=== PATIENT | male | born 1950 | race Caucasian/White ===

== ENCOUNTER 2017-01-01 12:21 | Emergency (ER) | payer OTHER ==
[2017-01-01 12:26] VITALS: BP 145/77; PULSE 99; TEMP 98.1; BMI 25.7
[2017-01-01] MEDS ORDERED: ALBUTEROL SO4 2.5/IPRATROPIUM 0.5 INH SOL 3 ML VIAL.NEB. NEB ONE ×5 (12:53→13:39)
[2017-01-01] MEDS ORDERED: predniSONE 20 MG TABLET (UD) PO ONE (12:53)
[2017-01-01] MEDS ORDERED: predniSONE 20 MG TABLET (UD) ONE (12:55)
--- NOTE | 2017-01-01 13:03 | PDOC ---
History of Present Illness - General Chief Complaint: Respiratory Stated Complaint: Bad cough, pain on ribs when cough Time Seen by Provider: 01/01/17 12:40 History Source: Patient Exam Limitations: No Limitations - History of Present Illness Initial Comments: 01/01/17 12:54 66 yr male history of depression, presents with 4-5 days of cough on Zpack day 4 with no improvement, pt states told he has the flu as well. . Pt denies fever states his is admitted to the hospital with flu. Pt denies chest pain denies fever or chills. Pt denies smoking history. 01/01/17 17:21 Timing/Duration: reports: constant Severity: reports: mild Possible Cause: Yes: no prior episodes Associated Symptoms: reports: cough. denies: nasal drainage, shortness of breath Past History - Past Medical History Allergies/Adverse Reactions: Allergies Allergy/AdvReac Type Severity Reaction Status Date / Time No Known Allergies Allergy Verified 01/01/17 12:26 Home Medications: Ambulatory Orders Albuterol Sulfate Inhaler - [Ventolin HFA Inhaler -] 2 inh PO Q4H #1 inh Ibuprofen 600 mg PO TID PRN #30 tablet 01/01/17 Prednisone [Deltasone -] 40 mg PO DAILY #14 tablet 01/01/17 HTN: Yes Hypercholesterolemia: Yes Psychiatric Problems: Yes (anxiety) Suicide Attempt (Hx): No - Surgical History Abdominal Surgery: Yes (HERNIA) - Psycho/Social/Smoking Cessation Hx Anxiety: No Suicidal Ideation: No Smoking Status: Yes Smoking History: Never smoked Number of Cigarettes Smoked Daily: 0 Information on smoking cessation initiated: No Hx Alcohol Use: No Drug/Substance Use Hx: No Substance Use Type: None Respiratory Specific PMHX - Complaint Specific PMHX Angina: No Bronchitis: Yes Pneumonia: No Pulmonary Embolus: No TB (Tuberculosis): No Review of Systems - Review of Systems Able to Perform ROS?: Yes Is the patient limited [place] proficient: No Constitutional: No: Symptoms Reported HEENTM: Yes: Nose Congestion Respiratory: Yes: Cough Cardiac (ROS): No: Chest Pain *Physical Exam - Vital Signs Last Vital Signs Temp Pulse Resp BP Pulse Ox 98.1 F 99 H 18 145/77 97 01/01/17 12:23 01/01/17 12:23 01/01/17 12:23 01/01/17 12:23 01/01/17 12:23 - Physical Exam General Appearance: Yes: Nourished, Appropriately Dressed HEENT: positive: EOMI, [place], Normal ENT Inspection, TMs Normal, Pharynx Normal Neck: positive: Supple. negative: Tender Respiratory/Chest: positive: Rhonchi, Wheezing Cardiovascular: positive: Regular Rhythm, Regular Rate Gastrointestinal/Abdominal: positive: Normal Bowel Sounds, Soft Musculoskeletal: positive: Normal Inspection Extremity: positive: Normal Capillary Refill, Normal Inspection Integumentary: positive: Normal Color, Dry, Warm Neurologic: positive: tower attendant II-XII NML intact, Fully Oriented, Alert, Normal Mood/ Affect Heart Score/ECG Review - ECG Impressions Normal ECG: Yes Comment:: 01/01/17 13:03 EKG done in triage was NSR no ectopy neg STEMI signed by in ER ED Treatment Course - RADIOLOGY Radiology Studies Ordered: Category Date Time Status CHEST PA & LAT [RAD] Stat Radiology 01/01/17 12:53 Ordered Medical Decision Making - Medical Decision Making 01/01/17 13:04 c/o cough for 4-5 days on Zpa day 4 pt denies chest pain , pos SOB worse at night lungs with coarse BS< wheezing, rhonchi will get CXR , check for flu duoneb, prednisone 01/01/17 13:27 01/01/17 13:34 pt improved after nebulizer CXR negative flu is positive, pt dx with lfu one week ago will give prednisone, inhaler, continue the zpack pt given dc inst via faroese translation. all questions asked and answered 01/01/17 17:22 *DC/Admit/Observation/Transfer Diagnosis at time of Disposition: Bronchitis - Discharge Dispostion Disposition: HOME Condition at time of disposition: Improved - Prescriptions Prescriptions: Prednisone [Deltasone -] 40 mg PO DAILY #14 tablet Ibuprofen 600 mg PO TID PRN #30 tablet PRN Reason: Pain Albuterol Sulfate Inhaler - [Ventolin HFA Inhaler -] 2 inh PO Q4H #1 inh - Referrals Referrals: Gi Hickey NP [Primary Care Provider] - - Patient Instructions Additional Instructions: take the prescribed prednisone as directed, next dose TOMORROW morning use the albuterol inhaler as directed take motrin for pain as needed drink pleanty of water to stay hydrated continue the Zpack you have started follow with your doctor in 2-3 days Return to ER if any worsening symptoms Print Language: CITIZEN OF [place]
--- NOTE | 2017-01-04 17:18 | EKG ---
Test Reason : Blood Pressure : / mmHG Vent. Rate : 093 BPM Atrial Rate : 093 BPM P-R Int : 134 ms QRS Dur : 094 ms QT Int : 358 ms P-R-T Axes : 056 043 042 degrees QTc Int : 445 ms NORMAL SINUS RHYTHM NORMAL ECG WHEN COMPARED WITH ECG OF 30-SEP-2013 16:35, NO SIGNIFICANT CHANGE WAS FOUND Confirmed by KYLE ACEVEDO MD ([id number]) on 01/04/2017 5:18:45 PM Referred By: Confirmed By:KYLE ACEVEDO MD
== END 2017-01-01 14:01 | disposition home or self-care (01) ==
LOC: JERFT 12:21
PROC: 3E0F7GC Introduction of Other Therapeutic Substance into Respiratory Tract, Via Natural or Artificial Opening (ICD-10-PCS; principal; 2017-01-01)
PROC: 3E0F7GC Introduction of Other Therapeutic Substance into Respiratory Tract, Via Natural or Artificial Opening (ICD-10-PCS; 2017-01-01)
DX: J09.X2 Influenza due to identified novel influenza A virus with other respiratory manifestations (principal); I10 Essential (primary) hypertension; E78.00 Pure hypercholesterolemia, unspecified; F41.9 Anxiety disorder, unspecified
CPT/HCPCS: 71020-TC; 87804; 93005; 93010; 94640; 99281-25

== ENCOUNTER 2018-01-22 10:03 | Emergency (ER) | payer OTHER ==
[2018-01-22 10:07] VITALS: TEMP 98.3; BMI 29.2
[2018-01-22] MEDS ORDERED: LIDOCAINE VISCOUS 2% ORAL/TOP 20 ML UNIT-DOSE CUP MM ONE (11:08)
--- NOTE | 2018-01-22 11:08 | PDOC ---
History of Present Illness - General History Source: Patient Exam Limitations: No Limitations - History of Present Illness Initial Comments: 01/22/18 11:11 The patient is a 67-year-old male, with a significant past medical history of GERD, HTN, hypercholesterolemia, and anxiety/depression, who presents to the ED with diffuse abdominal pain that began on 01/18/18. The patient states that he normally eats healthy foods but on Tuesday, after eating dinner, he decided to eat chocolate, donuts, and chicken soup that he noted was greasy. Since then the patient developed this intermittent, mid-abdominal pain that he describes as a burning sensation. He denies any radiation or exacerbating factors. The patient reports taking omeprazole with minimal relief of his symptoms. He called his pharmacy yesterday to see what he could take for his symptoms; they recommended mylanta. The Mylanta helped to alleviate his symptoms a little, but the patient reported to the ED for further evaluation since his symptoms have not resolved completely. The patient has been eating and drinking normally. He reports having diarrhea 2 days ago that has now resolved. He denies any urinary changes. He had a colonoscopy (2-3 years ago) and an endoscopy in the past that appeared to be normal. The patient denies any fever, chills, nausea, vomiting, or constipation. Allergies: NKA Surgical History: hernia repair, endoscopy, colonoscopy. PCP: Dr. Smith <Ximena Rogel - Last Filed: 01/22/18 11:12> - General History Source: Patient Exam Limitations: No Limitations <Olive Ambriz - Last Filed: 01/22/18 12:53> - General Chief Complaint: Pain Stated Complaint: ABD PAIN Past History <Ximena Rogel - Last Filed: 01/22/18 11:12> - Past Medical History COPD: No HTN: Yes Hypercholesterolemia: Yes Psychiatric Problems: Yes (anxiety) - Surgical History Abdominal Surgery: Yes (HERNIA) - Suicide/Smoking/Psychosocial Hx Smoking Status: Yes Smoking History: Never smoked Number of Cigarettes Smoked Daily: 0 Information on smoking cessation initiated: No Hx Alcohol Use: No Drug/Substance Use Hx: No Substance Use Type: None <Olive Ambriz - Last Filed: 01/22/18 12:53> - Past Medical History Allergies/Adverse Reactions: Allergies Allergy/AdvReac Type Severity Reaction Status Date / Time No Known Allergies Allergy Verified 01/22/18 10:07 Home Medications: Ambulatory Orders NK [No Known Home Medication] 01/22/18 Review of Systems - Review of Systems Able to Perform ROS?: Yes Comments:: 01/22/18 11:12 GENERAL/CONSTITUTIONAL: No fever or chills. No weakness. HEAD, EYES, EARS, NOSE AND THROAT: No change in vision. No ear pain or discharge. No sore throat. CARDIOVASCULAR: No chest pain or shortness of breath. RESPIRATORY: No cough, wheezing, or hemoptysis. GASTROINTESTINAL: (+)diarrhea, mid-abdominal pain. No nausea, vomiting, diarrhea or constipation. GENITOURINARY: No dysuria, frequency, or change in urination. MUSCULOSKELETAL: No joint or muscle swelling or pain. No neck or back pain. SKIN: No rash NEUROLOGIC: No headache, vertigo, loss of consciousness, or change in strength/ sensation. ENDOCRINE: No increased thirst. No abnormal weight change. HEMATOLOGIC/LYMPHATIC: No anemia, easy bleeding, or history of blood clots. ALLERGIC/IMMUNOLOGIC: No hives or skin allergy. <Ximena Rogel - Last Filed: 01/22/18 11:12> *Physical Exam - Vital Signs Last Vital Signs Temp Pulse Resp BP Pulse Ox 98.3 F 101 H 18 146/95 98 01/22/18 10:04 01/22/18 10:04 01/22/18 10:04 01/22/18 10:04 01/22/18 10:04 - Physical Exam Comments: 01/22/18 11:13 GENERAL: Awake, alert, and fully oriented, in no acute distress HEAD: No signs of trauma EYES: PERRLA, EOMI, sclera anicteric, conjunctiva clear ENT: Auricles normal inspection, nares patent, oropharynx clear without exudates. Moist mucosa. NECK: Normal ROM, supple, no lymphadenopathy, JVD, or masses LUNGS: Breath sounds equal, clear to auscultation bilaterally. No wheezes, and no crackles HEART: Regular rate and rhythm, normal S1 and S2, no murmurs, rubs or gallops ABDOMEN: Soft, nontender, normoactive bowel sounds. No guarding, no rebound. No masses EXTREMITIES: Normal range of motion, no edema. No clubbing or cyanosis. No cords, erythema, or tenderness NEUROLOGICAL: Alert and oriented x 3. Moves all extremities. Face is symmetric. SKIN: Warm, Dry, normal turgor, no rashes or lesions noted <Ximena Rogel - Last Filed: 01/22/18 11:12> - Vital Signs Last Vital Signs Temp Pulse Resp BP Pulse Ox 98.3 F 101 H 18 146/95 98 01/22/18 10:04 01/22/18 10:04 01/22/18 10:04 01/22/18 10:04 01/22/18 10:04 <Olive Ambriz - Last Filed: 01/22/18 12:53> Heart Score/ECG Review #1 General ECG Interpretation: Sinus Rhythm, Normal Rate (71), Normal Intervals, No acute ischemic changes <Olive Ambriz - Last Filed: 01/22/18 12:53> ED Treatment Course - LABORATORY CBC & Chemistry Diagram: 01/22/18 11:56 01/22/18 11:56 <Olive Ambriz - Last Filed: 01/22/18 12:53> Medical Decision Making - Medical Decision Making 01/22/18 10:58 67 yo male with generalized abd pain, x 5 days differential gastritis, ulcer, gerd, pancreatitis. plan labs lipase antacid. reassess. 01/22/18 12:47 pt labs unremarkable, has followup with GI scheduled for one month with dr. macias. feels improved. ekg normal. dc home. <Olive Ambriz - Last Filed: 01/22/18 12:53> *DC/Admit/Observation/Transfer - Attestations Scribe Attestion: 01/22/18 11:14 Documentation prepared by Ximena Rogel, acting as medical/surgery registered nurse for Olive Ambriz MD. <Ximena Rogel - Last Filed: 01/22/18 11:12> - Discharge Dispostion Admit: No <Olive Ambriz - Last Filed: 01/22/18 12:53> Diagnosis at time of Disposition: GERD (gastroesophageal reflux disease) - Discharge Dispostion Disposition: HOME Condition at time of disposition: Improved - Referrals Referrals: Stacy Tejeda MD [Primary Care Provider] - - Patient Instructions Printed Discharge Instructions: Gastroesophageal Reflux Disease (Alternative Therapy) Additional Instructions: you should take pepcid daily to help with reflux. follow up with dr. macias as scheduled. return for any vomiting, worsening pain, fever or any concerns. Print Language: KOSOV[place] - Post Discharge Activity
[2018-01-22] MEDS ORDERED: RANITIDINE HCL 150 MG/10 ML UNIT-DOSE PO ONE (11:09)
[2018-01-22] MEDS ORDERED: MAG HYDROX/AL HYDROX/SIMETH 30 ML UNIT-DOSE CUP PO ONE (11:09)
[2018-01-22] MEDS ORDERED: RANITIDINE HCL 150 MG TABLET (FP) ONE (11:13)
[2018-01-22] MEDS ORDERED: LIDOCAINE VISCOUS 2% ORAL/TOP 20 ML UNIT-DOSE CUP ONE (11:13)
[2018-01-22] MEDS ORDERED: MAG HYDROX/AL HYDROX/SIMETH 30 ML UNIT-DOSE CUP ONE (11:13)
[2018-01-22 12:11] LABS: BASO % 0.8 % (0-2.0); EOS % 1.1 % (0-4.5); HEMATOCRIT 42.8 % (35.4-49); HEMOGLOBIN 14.4 GM/dL (11.7-16.9); LYMPH % 30.6 % (8-40); MCH 29.9 pg (25.7-33.7); MCHC 33.6 g/dl (32.0-35.9); MEAN PLT VOLUME 7.3 fl (7.5-11.1); MONO % 7.4 % (3.8-10.2); NEUT % 60.1 % (42.8-82.8); PLATELET COUNT 279 K/MM3 (134-434); RBC 4.81 M/mm3 (4.00-5.60); RDW 13.9 % (11.9-15.9)
[2018-01-22 12:37] LABS: ALBUMIN 3.6 g/dl (3.4-5.0); ANION GAP 5 (8-16); BLOOD UREA NITROGEN 12 mg/dL (7-18); CALCIUM 8.6 mg/dL (8.5-10.1); CHLORIDE 107 mmol/L (98-107); CO2 29 mmol/L (21-32); CREATININE 0.9 mg/dL (0.7-1.3); GLUCOSE,RANDOM 87 mg/dL (74-106); LIPASE 132 U/L (73-393); SGPT/ALT 31 U/L (12-78); SODIUM 141 mmol/L (136-145)
[2018-01-22 12:38] LABS: ALK PHOS 84 U/L (45-117); BILIRUBIN,TOTAL 0.5 mg/dL (0.2-1.0); TOT PROT 7.1 g/dl (6.4-8.2)
[2018-01-22 12:41] LABS: POTASSIUM 4.8 mmol/L (3.5-5.1); SGOT/AST 36 U/L (15-37)
[2018-01-22 13:06] VITALS: BP 127/74; PULSE 81
--- NOTE | 2018-01-22 14:47 | EKG ---
Test Reason : Blood Pressure : / mmHG Vent. Rate : 071 BPM Atrial Rate : 071 BPM P-R Int : 166 ms QRS Dur : 098 ms QT Int : 380 ms P-R-T Axes : 048 032 034 degrees QTc Int : 412 ms NORMAL SINUS RHYTHM NORMAL ECG WHEN COMPARED WITH ECG OF 01-JAN-2017 12:27, NO SIGNIFICANT CHANGE WAS FOUND Confirmed by ANDREE BISHOP MD ([id number]) on 01/22/2018 2:47:01 PM Referred By: Confirmed By:ANDREE BISHOP MD
== END 2018-01-22 13:06 | disposition home or self-care (01) ==
LOC: JER 10:03
DX: K21.9 Gastro-esophageal reflux disease without esophagitis (principal); I10 Essential (primary) hypertension; E78.00 Pure hypercholesterolemia, unspecified; F41.9 Anxiety disorder, unspecified; F32.9 Major depressive disorder, single episode, unspecified
CPT/HCPCS: 36415; 80053; 83690; 85025; 93005; 93010; 99283-25

== ENCOUNTER 2018-11-21 09:53 | Emergency (ER) | payer OTHER ==
[2018-11-21] MEDS ORDERED: KETOROLAC TROMETHAMINE 30 MG/1 ML VIAL IVPUSH ONE (10:32)
[2018-11-21] MEDS ORDERED: KETOROLAC TROMETHAMINE 30 MG/1 ML VIAL ONE (10:51)
--- NOTE | 2018-11-21 11:03 | PDOC ---
History of Present Illness - General Chief Complaint: Nausea Stated Complaint: STOMACH PAIN Time Seen by Provider: 11/21/18 10:25 History Source: Patient Exam Limitations: No Limitations - History of Present Illness Travel History: No Initial Comments: 11/21/18 10:37 68-year-old male presents to ED with complaints of generalized abdominal pain greater in the belly button region which she describes as a burning sensation for the past 3 days associated with intermittent brown watery diarrhea. Patient denies history of colitis and states receives colonoscopies as scheduled. Patient denies nausea as initially stated in triage. Patient denies fever, chills recent constipation states has been taking Pepto-Bismol and Mylanta which seemed to alleviate the diarrhea. Patient has no other complaints at this time. Patient was seen here for the same last year. Timing/Duration: reports: getting worse, intermittent Quality: reports: moderate, burning Abdominal Pain Onset Location: reports: periumbilical, generalized abdomen Activities at Onset: reports: none Aggravating Factors: improves with: None Alleviating Factors: improves with: None Past History - Travel Traveled outside of the country in the last 30 days: No Close contact w/someone who was outside of country & ill: No - Past Medical History Allergies/Adverse Reactions: Allergies Allergy/AdvReac Type Severity Reaction Status Date / Time No Known Allergies Allergy Verified 01/22/18 10:07 Home Medications: Ambulatory Orders NK [No Known Home Medication] 01/22/18 COPD: No HTN: Yes Hypercholesterolemia: Yes Psychiatric Problems: Yes (anxiety) - Surgical History Abdominal Surgery: Yes (HERNIA) - Suicide/Smoking/Psychosocial Hx Smoking Status: Yes Smoking History: Never smoked Number of Cigarettes Smoked Daily: 0 Hx Alcohol Use: No Drug/Substance Use Hx: No Substance Use Type: None Patient Lives Alone: No Lives with/in: spouse/SO Abd/GI Specific PMHX - Complaint Specific PMHX Colitis: No Diverticulitis: No Review of Systems - Review of Systems Able to Perform ROS?: Yes Constitutional: No: Symptoms Reported HEENTM: No: Symptoms Reported Respiratory: No: Symptoms reported Cardiac (ROS): No: Symptoms Reported ABD/GI: Yes: Diarrhea, Abdominal cramping : No: Symptoms Reported Musculoskeletal: No: Symptoms Reported Integumentary: No: Symptoms Reported Neurological: No: Symptoms reported *Physical Exam - Physical Exam General Appearance: Yes: Nourished, Appropriately Dressed. No: Apparent Distress HEENT: negative: Pale Conjunctivae Neck: positive: Supple Respiratory/Chest: positive: Lungs Clear, Normal Breath Sounds. negative: Respiratory Distress, Accessory Muscle Use Cardiovascular: positive: Regular Rhythm, Regular Rate. negative: Edema Gastrointestinal/Abdominal: positive: Normal Bowel Sounds, Soft, Tenderness ( generalize greater in the periumbilical region). negative: Distended, Guarding , Rebound Musculoskeletal: negative: CVA Tenderness Extremity: negative: Pedal Edema Integumentary: positive: Normal Color, Warm, Moist Neurologic: positive: Normal Mood/Affect (anxious), Motor Strength 5/5 ( ambulatory) ED Treatment Course - LABORATORY CBC & Chemistry Diagram: 11/21/18 11:00 11/21/18 11:00 - RADIOLOGY Radiology Studies Ordered: Category Date Time Status ABDOMEN & PELVIS CT W/O CONTR [CT] Stat CT Scan 11/21/18 10:32 Ordered Medical Decision Making - Medical Decision Making 11/21/18 10:41 Chief complaint: generalized abd pain with diarrhea 3 days ago. No other complaints Exam: tenderness to periumbilical region, BS+ x 4 Plan: Labs, urine and abd/pelvis CT 11/21/18 13:39 Laboratory Tests 11/21/18 11/21/18 11/21/18 11:00 11:00 11:00 WBC 7.2 Hgb 15.2 Hct 43.8 Neutrophils % 63.0 Sodium 138 Potassium 4.3 Chloride 104 Carbon Dioxide 30 Anion Gap 4 L BUN 16 Creatinine 1.0 Creat Clearance w eGFR > 60 Random Glucose 90 Calcium 8.6 Magnesium 3.0 H Total Bilirubin 0.6 AST 34 ALT 34 Alkaline Phosphatase 109 Total Protein 7.8 Albumin 4.1 Lipase 178 Urine Ketones Negative Ur Leukocyte Esterase Negative Patient states feeling better after receiving the medication. Patient with colonic diverticulosis without CT evidence of diverticulitis. The prostate is enlarged normal appendix with small hiatal hernia and umbilical hernia with fat. Also noted bilateral inguinal hernias with fat. Patient will be discharged home with recommendations to follow up with surgeon. *DC/Admit/Observation/Transfer Diagnosis at time of Disposition: Hernia - Discharge Dispostion Disposition: HOME Condition at time of disposition: Good - Referrals Referrals: Stacy Tejeda MD [Primary Care Provider] - Los Parker MD [Staff Physician] - - Patient Instructions Printed Discharge Instructions: DI for Hiatal Hernia Additional Instructions: Please follow-up with recommended surgeon. Also avoid lifting heavy items and wear abdominal binder as discussed. You may take Tylenol or Motrin for discomfort. - Post Discharge Activity
[2018-11-21 11:19] LABS: EOS % 1.2 % (0-4.5); HEMATOCRIT 43.8 % (35.4-49); HEMOGLOBIN 15.2 GM/dL (11.7-16.9); LYMPH % 27.3 % (8-40); MCH 30.7 pg (25.7-33.7); MCHC 34.6 g/dl (32.0-35.9); MEAN CELL VOLUME 88.8 fl (80-96); MEAN PLT VOLUME 7.5 fl (7.5-11.1); MONO % 7.5 % (3.8-10.2); PLATELET COUNT 262 K/MM3 (134-434); RBC 4.94 M/mm3 (4.00-5.60); RDW 14.2 % (11.9-15.9); WHITE BLOOD COUNT 7.2 K/mm3 (4.0-10.0)
[2018-11-21 11:23] VITALS: BP 145/93; PULSE 96; TEMP 98; BMI 26.9
[2018-11-21 11:46] LABS: URINE APPEARANCE CLEAR; URINE BILIRUBIN NEGATIVE (<2.0 mg/dL); URINE COLOR YELLOW; URINE GLUCOSE (UA) NEGATIVE (NEGATIVE); URINE KETONE NEGATIVE (NEGATIVE); URINE LEUK ESTERASE NEGATIVE (NEGATIVE); URINE NITRITE NEGATIVE (NEGATIVE); URINE PROTEIN NEGATIVE (NEGATIVE); URINE UROBILINOGEN NEGATIVE mg/dL (0.2-1.0)
[2018-11-21 11:50] LABS: ALBUMIN 4.1 g/dl (3.4-5.0); ALK PHOS 109 U/L (45-117); ANION GAP 4 MMOL/L (8-16); BILIRUBIN,TOTAL 0.6 mg/dL (0.2-1); BLOOD UREA NITROGEN 16 mg/dL (7-18); CALCIUM 8.6 mg/dL (8.5-10.1); CHLORIDE 104 mmol/L (98-107); CO2 30 mmol/L (21-32); GLUCOSE,RANDOM 90 mg/dL (74-106); LIPASE 178 U/L (73-393); POTASSIUM 4.3 mmol/L (3.5-5.1); SGOT/AST 34 U/L (15-37); SGPT/ALT 34 U/L (13-61); SODIUM 138 mmol/L (136-145); TOT PROT 7.8 g/dl (6.4-8.2)
[2018-11-21] MEDS ORDERED: LIDOCAINE VISCOUS 2% ORAL/TOP 20 ML UNIT-DOSE CUP MM ONE (12:25)
[2018-11-21] MEDS ORDERED: MAG HYDROX/AL HYDROX/SIMETH 30 ML UNIT-DOSE CUP PO ONE (12:26)
[2018-11-21] MEDS ORDERED: HYOSCYAMINE SULFATE 0.125 MG *ODT PO ONE (12:26)
[2018-11-21] MEDS ORDERED: PANTOPRAZOLE SODIUM 40 MG in SODIUM CHLORIDE 100 ML IVPB ONE (12:27)
[2018-11-21] MEDS ORDERED: LIDOCAINE VISCOUS 2% ORAL/TOP 20 ML UNIT-DOSE CUP ONE (12:58)
[2018-11-21] MEDS ORDERED: MAG HYDROX/AL HYDROX/SIMETH 30 ML UNIT-DOSE CUP ONE (12:58)
[2018-11-21] MEDS ORDERED: PANTOPRAZOLE SODIUM 40 MG/100 ML BAG IVPB ONE (12:58)
[2018-11-21] MEDS ORDERED: IBUPROFEN 600 MG TABLET (FP) PO ONE (13:42)
== END 2018-11-21 13:59 | disposition home or self-care (01) ==
LOC: JER 09:53
PROC: 3E033GC Introduction of Other Therapeutic Substance into Peripheral Vein, Percutaneous Approach (ICD-10-PCS; principal; 2018-11-21)
DX: K40.20 Bilateral inguinal hernia, without obstruction or gangrene, not specified as recurrent (principal); K42.9 Umbilical hernia without obstruction or gangrene; K44.9 Diaphragmatic hernia without obstruction or gangrene; K57.30 Diverticulosis of large intestine without perforation or abscess without bleeding; N40.0 Benign prostatic hyperplasia without lower urinary tract symptoms
CPT/HCPCS: 36415; 74176-TC; 80053; 81003; 83690; 83735; 85025; 96365; 99282-25

== ENCOUNTER 2023-02-15 18:10 | Observation (INO) | payer OTHER ==
[2023-02-15] MEDS ORDERED: SODIUM CHLORIDE 0.9% 500 ML INFUS.BAG IV ONE (19:17)
[2023-02-15] MEDS ORDERED: ACETAMINOPHEN 1000 MG/100 ML BAG IVPB ONE (19:49)
[2023-02-15] MEDS ORDERED: ACETAMINOPHEN INJECTION 100 ML IVPB ONE (19:49)
[2023-02-15 20:31] LABS: VENOUS BASE EXCESS 1.3 mmol/L (-2-2); VENOUS O2 SATURATION 43.1 % (70-80); VENOUS PCO2 50.5 mmHg (38-52); VENOUS PH 7.358 (7.310-7.410)
[2023-02-15 20:43] LABS: PROTHROMBIN TIME (PATIENT) 11.6 SEC (9.7-13.0)
[2023-02-15 20:45] LABS: BASO % 0.4 % (0-2.0); EOS % 0.6 % (0-4.5); HEMATOCRIT 41.3 % (35.4-49); HEMOGLOBIN 13.7 GM/dL (11.7-16.9); LYMPH % 9.4 % (8-40); MCH 28.6 pg (25.7-33.7); MCHC 33.3 g/dl (32.0-35.9); MEAN CELL VOLUME 86.1 fl (80-96); MEAN PLT VOLUME 7.4 fl (7.5-11.1); MONO % 6.9 % (3.8-10.2); NEUT % 82.7 % (42.8-82.8); PLATELET COUNT 347 10^3/uL (134-434); RBC 4.79 M/mm3 (4.00-5.60); RDW 14.6 % (11.9-15.9); WHITE BLOOD COUNT 12.1 K/mm3 (4.0-10.0)
[2023-02-15 20:46] LABS: ACTIVATED PTT 29.5 SECONDS (25.2-36.5)
[2023-02-15 20:50] LABS: POTASSIUM 4.5 mmol/L (3.5-5.1)
[2023-02-15 20:51] LABS: CALCIUM 8.9 mg/dL (8.5-10.1)
[2023-02-15 20:52] LABS: ALBUMIN 3.7 g/dl (3.4-5.0); BLOOD UREA NITROGEN 16.8 mg/dL (7-18); MAGNESIUM 2.4 mg/dL (1.8-2.4)
[2023-02-15 20:57] LABS: BILIRUBIN,TOTAL 0.5 mg/dL (0.2-1); TOT PROT 7.2 g/dl (6.4-8.2)
[2023-02-15 21:29] LABS: URINE APPEARANCE CLEAR; URINE BILIRUBIN NEGATIVE (NEGATIVE); URINE COLOR YELLOW; URINE GLUCOSE (UA) NEGATIVE (NEGATIVE); URINE KETONE NEGATIVE (NEGATIVE); URINE LEUK ESTERASE NEGATIVE (NEGATIVE); URINE NITRITE NEGATIVE (NEGATIVE); URINE PROTEIN TRACE (NEGATIVE)
[2023-02-15] MEDS ORDERED: ACETAMINOPHEN 325 MG TABLET (FP) PO PRN (22:37)
[2023-02-15] MEDS ORDERED: LORazepam 1 MG TABLET PO PRN (23:41)
[2023-02-16] MEDS ORDERED: levETIRAcetam 500 MG/5 ML INJECTION VIAL IVPB ONE ×2 (00:03)
[2023-02-16 02:15] VITALS: BMI 30.5
[2023-02-16] MEDS: GABAPENTIN 300 MG CAPSULE PO SCH ×3 (06:15→21:57)
[2023-02-16] MEDS: FLUTICASONE PROP 0.05% 16 GM NASAL SPRAY NS SCH ×2 (07:52→10:29)
[2023-02-16] MEDS: LORATADINE 10 MG TABLET PO SCH ×2 (07:52→10:07)
[2023-02-16 08:10] LABS: HEMATOCRIT 36.2 % (35.4-49); HEMOGLOBIN 12.7 GM/dL (11.7-16.9); MCH 30.1 pg (25.7-33.7); MCHC 35.2 g/dl (32.0-35.9); MEAN CELL VOLUME 85.5 fl (80-96); MEAN PLT VOLUME 7.7 fl (7.5-11.1); PLATELET COUNT 302 10^3/uL (134-434); RBC 4.23 M/mm3 (4.00-5.60); RDW 14.5 % (11.9-15.9); WHITE BLOOD COUNT 8.6 K/mm3 (4.0-10.0)
[2023-02-16 08:40] LABS: POTASSIUM 4.1 mmol/L (3.5-5.1)
[2023-02-16 08:43] LABS: CALCIUM 8.6 mg/dL (8.5-10.1)
[2023-02-16 08:45] LABS: BLOOD UREA NITROGEN 13.1 mg/dL (7-18); MAGNESIUM 2.4 mg/dL (1.8-2.4)
[2023-02-16 08:47] LABS: PHOSPHOROUS 2.5 mg/dL (2.5-4.9)
[2023-02-16 08:48] LABS: CREATININE 0.8 mg/dL (0.55-1.3)
[2023-02-16] MEDS: ENALAPRIL MALEATE 10 MG TABLET PO SCH (10:07)
[2023-02-16] MEDS: PARoxetine HCL 10 MG TABLET PO SCH (10:07)
[2023-02-16] MEDS: CHLORTHALIDONE 25 MG TABLET PO SCH (10:07)
[2023-02-16] MEDS: TAMSULOSIN HCL 0.4 MG CAP PO SCH (10:07)
[2023-02-16] MEDS: levETIRAcetam 500 MG TABLET (FP) PO SCH ×2 (10:07→21:57)
[2023-02-16] MEDS: PANTOPRAZOLE 20 MG TABLET PO SCH (10:07)
[2023-02-16] MEDS ORDERED: levETIRAcetam 500 MG/5 ML INJECTION VIAL IVPB SCH (12:00)
[2023-02-16] MEDS ORDERED: ARTIFICIAL TEARS (POLYVINYL ALCOHOL) OPTH DROPS OU PRN (16:46)
[2023-02-16] MEDS: LIDOCAINE 5% TOPICAL PATCH TP SCH (17:15)
[2023-02-16] MEDS ORDERED: ATORVASTATIN CA 40 MG TABLET (FP) PO SCH (22:00)
[2023-02-16] MEDS ORDERED: LATANOPROST 0.005% OPHTH SOLN 2.5ML BOTTLE OU SCH (22:00)
[2023-02-16] MEDS ORDERED: LIDOCAINE PATCH REMOVAL MC SCH (22:00)
[2023-02-16] MEDS ORDERED: AMITRIPTYLINE HCL 10 MG TABLET PO SCH (22:00)
[2023-02-17] MEDS: GABAPENTIN 300 MG CAPSULE PO SCH (06:13)
[2023-02-17] MEDS: LORATADINE 10 MG TABLET PO SCH (09:10)
[2023-02-17] MEDS: TAMSULOSIN HCL 0.4 MG CAP PO SCH (09:10)
[2023-02-17] MEDS: LIDOCAINE 5% TOPICAL PATCH TP SCH (09:11)
[2023-02-17] MEDS: CHLORTHALIDONE 25 MG TABLET PO SCH (09:11)
[2023-02-17] MEDS: ENALAPRIL MALEATE 10 MG TABLET PO SCH (09:11)
[2023-02-17] MEDS: PANTOPRAZOLE 20 MG TABLET PO SCH (09:11)
[2023-02-17] MEDS: PARoxetine HCL 10 MG TABLET PO SCH (09:11)
[2023-02-17] MEDS: levETIRAcetam 500 MG TABLET (FP) PO SCH (09:11)
[2023-02-17] MEDS: FLUTICASONE PROP 0.05% 16 GM NASAL SPRAY NS SCH (10:02)
[2023-02-17 10:42] VITALS: BP 128/79; PULSE 100; RESP 19; TEMP 98.2
== END 2023-02-17 13:19 | disposition home or self-care (01) ==
LOC: JER 18:10 → JERBED 22:01 → J8W 02-16 01:12
PROVIDERS: ADMIT Internal Medicine; ATTEND Nurse Practitioner Acute Care
PROC: 3E033NZ Introduction of Analgesics, Hypnotics, Sedatives into Peripheral Vein, Percutaneous Approach (ICD-10-PCS; principal; 2023-02-15)
PROC: 3E033GC Introduction of Other Therapeutic Substance into Peripheral Vein, Percutaneous Approach (ICD-10-PCS; 2023-02-15)
PROC: 3E0337Z Introduction of Electrolytic and Water Balance Substance into Peripheral Vein, Percutaneous Approach (ICD-10-PCS; 2023-02-15)
DX: R56.9 Unspecified convulsions (principal); G96.08 Other cranial cerebrospinal fluid leak; I10 Essential (primary) hypertension; K21.9 Gastro-esophageal reflux disease without esophagitis; E78.5 Hyperlipidemia, unspecified; F41.9 Anxiety disorder, unspecified; N40.0 Benign prostatic hyperplasia without lower urinary tract symptoms; S00.80XA Unspecified superficial injury of other part of head, initial encounter; X58.XXXA Exposure to other specified factors, initial encounter; Y93.9 Activity, unspecified; Y92.9 Unspecified place or not applicable; Z87.890 Personal history of sex reassignment
CPT/HCPCS: 0241U-QW; 36415; 70450-TC; 70551-TC; 71045-TC-FY; 80048; 80053; 81003; 82550; 82553; 82803; 82962; 83605; 83735; 84100; 84439; 84443; 84484; 85025; 85027; 85610; 85730; 87086; 93005; 93010; 95816; 96374; 96375; 96376; 97116-GP; 97161-GP; 99285-25; G0378

== ENCOUNTER 2023-05-01 11:09 | Emergency (ER) | payer OTHER ==
[2023-05-01 11:16] VITALS: BP 145/76; PULSE 92; RESP 18; TEMP 98.7; BMI 29.0
[2023-05-01 13:00] LABS: URINE APPEARANCE CLEAR; URINE BILIRUBIN NEGATIVE (NEGATIVE); URINE COLOR YELLOW; URINE GLUCOSE (UA) NEGATIVE (NEGATIVE); URINE KETONE NEGATIVE (NEGATIVE); URINE LEUK ESTERASE NEGATIVE (NEGATIVE); URINE NITRITE NEGATIVE (NEGATIVE); URINE PROTEIN NEGATIVE (NEGATIVE); URINE UROBILINOGEN 0.2 mg/dL (0.2-1.0)
[2023-05-01] MEDS ORDERED: MAG HYDROX/AL HYDROX/SIMETH 30 ML UNIT-DOSE CUP PO ONE (13:13)
[2023-05-01] MEDS ORDERED: SUCRALFATE 1 GM/10 ML UNIT DOSE CUPS PO ONE (13:22)
[2023-05-01] MEDS ORDERED: FAMOTIDINE 20 MG/50 ML IVPB 20 MG/50 ML MG IVPB ONE ×2 (13:22→13:36)
[2023-05-01] MEDS ORDERED: SODIUM CHLORIDE 0.9% 500 ML INFUS.BAG IV ONE (13:22)
[2023-05-01] MEDS ORDERED: SUCRALFATE 1 GM TABLET (FP) ONE (13:36)
[2023-05-01] MEDS ORDERED: MAG HYDROX/AL HYDROX/SIMETH 30 ML UNIT-DOSE CUP ONE (13:36)
[2023-05-01 13:59] LABS: BASO % 1.2 % (0-2.0); EOS % 1.5 % (0-4.5); HEMATOCRIT 43.2 % (35.4-49); HEMOGLOBIN 13.9 GM/dL (11.7-16.9); LYMPH % 27.5 % (8-40); MCH 28.3 pg (25.7-33.7); MCHC 32.3 g/dl (32.0-35.9); MEAN CELL VOLUME 87.8 fl (80-96); MEAN PLT VOLUME 7.1 fl (7.5-11.1); MONO % 6.6 % (3.8-10.2); NEUT % 63.2 % (42.8-82.8); PLATELET COUNT 322 10^3/uL (134-434); RBC 4.92 M/mm3 (4.00-5.60); RDW 14.9 % (11.9-15.9); WHITE BLOOD COUNT 6.8 K/mm3 (4.0-10.0)
[2023-05-01 14:13] LABS: POTASSIUM 4.9 mmol/L (3.5-5.1)
[2023-05-01 14:16] LABS: ALBUMIN 3.7 g/dl (3.4-5.0); BLOOD UREA NITROGEN 20.3 mg/dL (7-18); CALCIUM 9.2 mg/dL (8.5-10.1); MAGNESIUM 2.9 mg/dL (1.8-2.4)
[2023-05-01 14:18] LABS: CREATININE 1.1 mg/dL (0.55-1.3)
[2023-05-01 14:21] LABS: TOT PROT 7.3 g/dl (6.4-8.2)
[2023-05-01 14:22] LABS: BILIRUBIN,TOTAL 0.4 mg/dL (0.2-1)
== END 2023-05-01 17:48 | disposition home or self-care (01) ==
LOC: JER 11:09
PROC: 3E033GC Introduction of Other Therapeutic Substance into Peripheral Vein, Percutaneous Approach (ICD-10-PCS; principal; 2023-05-01)
DX: R10.84 Generalized abdominal pain (principal); R11.0 Nausea; R56.9 Unspecified convulsions; G47.00 Insomnia, unspecified; R61 Generalized hyperhidrosis; F41.9 Anxiety disorder, unspecified; R63.0 Anorexia
CPT/HCPCS: 36415; 74177-TC; 80053; 81003; 83605; 83690; 83735; 84100; 84484; 85025; 87086; 93005; 93010; 99285-25; Q9967

== ENCOUNTER 2023-08-27 06:45 | Observation (INO) | payer OTHER ==
[2023-08-27 07:03] VITALS: TEMP 97.9; BMI 28.3
[2023-08-27] MEDS ORDERED: FAMOTIDINE 20 MG/50 ML IVPB 20 MG/50 ML MG IVPB ONE (07:59)
[2023-08-27] MEDS ORDERED: MAG HYDROX/AL HYDROX/SIMETH 30 ML UNIT-DOSE CUP PO ONE (07:59)
[2023-08-27] MEDS ORDERED: SUCRALFATE 1 GM TABLET (FP) PO ONE (08:00)
[2023-08-27] MEDS ORDERED: ACETAMINOPHEN 1000 MG/100 ML BAG IVPB ONE (08:01)
[2023-08-27] MEDS ORDERED: SODIUM CHLORIDE 0.9% 500 ML INFUS.BAG IV ONE (08:01)
[2023-08-27] MEDS ORDERED: SUCRALFATE 1 GM TABLET (FP) ONE (08:03)
[2023-08-27] MEDS ORDERED: FAMOTIDINE 10 MG/ML VIAL IVPB ONE (08:04)
[2023-08-27] MEDS ORDERED: MAG HYDROX/AL HYDROX/SIMETH 30 ML UNIT-DOSE CUP ONE (08:04)
[2023-08-27] MEDS ORDERED: ACETAMINOPHEN INJECTION 100 ML IVPB ONE (08:04)
[2023-08-27 08:21] LABS: PH,URINE 6.5 (5.0-8.0); URINE APPEARANCE CLEAR; URINE BILIRUBIN NEGATIVE (NEGATIVE); URINE COLOR YELLOW; URINE GLUCOSE (UA) NEGATIVE (NEGATIVE); URINE KETONE NEGATIVE (NEGATIVE); URINE LEUK ESTERASE NEGATIVE (NEGATIVE); URINE NITRITE NEGATIVE (NEGATIVE); URINE PROTEIN NEGATIVE (NEGATIVE)
[2023-08-27] MEDS ORDERED: PANTOPRAZOLE SODIUM 40 MG VIAL IVPUSH ONE (08:22)
[2023-08-27 08:39] LABS: INR 1.07 (0.83-1.09); PROTHROMBIN TIME (PATIENT) 12.4 SEC (9.7-13.0)
[2023-08-27 08:41] LABS: ACTIVATED PTT 29.8 SECONDS (25.2-36.5)
[2023-08-27 08:49] LABS: BASO % 0.8 % (0-2.0); EOS % 1.6 % (0-4.5); HEMATOCRIT 42.1 % (35.4-49); LYMPH % 32.2 % (8-40); MCH 28.7 pg (25.7-33.7); MCHC 33.2 g/dl (32.0-35.9); MEAN CELL VOLUME 86.6 fl (80-96); MEAN PLT VOLUME 7.1 fl (7.5-11.1); MONO % 8.1 % (3.8-10.2); NEUT % 57.3 % (42.8-82.8); PLATELET COUNT 276 10^3/uL (134-434); RBC 4.86 M/mm3 (4.00-5.60); RDW 14.9 % (11.9-15.9); WHITE BLOOD COUNT 6.5 K/mm3 (4.0-10.0)
[2023-08-27] MEDS ORDERED: PANTOPRAZOLE SODIUM 40 MG/100 ML BAG IVPB ONE (08:51)
[2023-08-27 08:54] LABS: POTASSIUM 4.4 mmol/L (3.5-5.1)
[2023-08-27 08:56] LABS: ALBUMIN 3.6 g/dl (3.4-5.0); BLOOD UREA NITROGEN 13.6 mg/dL (7-18); CALCIUM 9.1 mg/dL (8.5-10.1)
[2023-08-27 08:59] LABS: CREATININE 1.1 mg/dL (0.55-1.3)
[2023-08-27 09:01] LABS: BILIRUBIN,TOTAL 0.6 mg/dL (0.2-1); TOT PROT 6.9 g/dl (6.4-8.2)
[2023-08-27] MEDS ORDERED: morphine CARPU-JECT 4 MG/1 ML DISP.SYRIN IVPUSH ONE (12:09)
[2023-08-27] MEDS ORDERED: morphine SULFATE 4 MG/ML VIAL ONE (12:22)
[2023-08-27 13:03] VITALS: BP 167/100; PULSE 72; RESP 16
== END 2023-08-27 12:56 | disposition home or self-care (01) ==
LOC: JER 06:45 → JERBED 12:13
PROVIDERS: ADMIT Internal Medicine; ATTEND Internal Medicine
PROC: 3E033NZ Introduction of Analgesics, Hypnotics, Sedatives into Peripheral Vein, Percutaneous Approach (ICD-10-PCS; principal; 2023-08-27)
PROC: 3E033GC Introduction of Other Therapeutic Substance into Peripheral Vein, Percutaneous Approach (ICD-10-PCS; 2023-08-27)
PROC: 3E0337Z Introduction of Electrolytic and Water Balance Substance into Peripheral Vein, Percutaneous Approach (ICD-10-PCS; 2023-08-27)
DX: K29.70 Gastritis, unspecified, without bleeding (principal); K21.9 Gastro-esophageal reflux disease without esophagitis; R10.84 Generalized abdominal pain; R56.9 Unspecified convulsions; I10 Essential (primary) hypertension; E78.5 Hyperlipidemia, unspecified; F32.A Depression, unspecified
CPT/HCPCS: 36415; 71045-TC-FY; 74177-TC; 80053; 81003; 83605; 83690; 84484; 85025; 85610; 85730; 93005; 93010; 96365; 96375; 99285-25; G0378

== ENCOUNTER 2024-03-20 05:42 | Emergency (ER) | payer OTHER ==
[2024-03-20 05:54] VITALS: RESP 16; BMI 28.3
[2024-03-20] MEDS ORDERED: MAG HYDROX/AL HYDROX/SIMETH 30 ML UNIT-DOSE CUP ONE (06:27)
[2024-03-20] MEDS ORDERED: FAMOTIDINE 20 MG/50 ML IVPB 20 MG/50 ML MG IVPB ONE (06:27)
[2024-03-20] MEDS ORDERED: LIDOCAINE VISCOUS 2% ORAL/TOP 15 ML UNIT-DOSE CUP ONE (06:27)
[2024-03-20] MEDS: LIDOCAINE VISCOUS 2% ORAL/TOP 15 ML UNIT-DOSE CUP MM ONE (06:42)
[2024-03-20] MEDS: FAMOTIDINE 20 MG/50 ML IVPB 20 MG/50 ML MG IVPB ONE (06:42)
[2024-03-20] MEDS: MAG HYDROX/AL HYDROX/SIMETH 30 ML UNIT-DOSE CUP PO ONE (06:43)
[2024-03-20 07:33] LABS: BASO % 1.3 % (0-2.0); EOS % 3.1 % (0-4.5); HEMATOCRIT 40.3 % (35.4-49); HEMOGLOBIN 13.6 GM/dL (11.7-16.9); LYMPH % 39.1 % (8-40); MCH 28.9 pg (25.7-33.7); MCHC 33.6 g/dl (32.0-35.9); MEAN CELL VOLUME 85.9 fl (80-96); MEAN PLT VOLUME 7.4 fl (7.5-11.1); MONO % 10.1 % (3.8-10.2); NEUT % 46.4 % (42.8-82.8); PLATELET COUNT 279 10^3/uL (134-434); RDW 15.3 % (11.9-15.9); WHITE BLOOD COUNT 4.6 K/mm3 (4.0-10.0)
[2024-03-20 07:49] LABS: POTASSIUM 3.9 mmol/L (3.5-5.1)
[2024-03-20 07:51] LABS: CALCIUM 9.1 mg/dL (8.5-10.1)
[2024-03-20 07:52] LABS: ALBUMIN 3.5 g/dl (3.4-5.0); BLOOD UREA NITROGEN 20.7 mg/dL (7-18); MAGNESIUM 2.3 mg/dL (1.8-2.4)
[2024-03-20 07:56] LABS: BILIRUBIN,TOTAL 0.5 mg/dL (0.2-1)
[2024-03-20 07:57] LABS: TOT PROT 6.8 g/dl (6.4-8.2)
[2024-03-20] MEDS ORDERED: ENALAPRIL MALEATE 5 MG TABLET ONE (10:01)
[2024-03-20] MEDS ORDERED: ACETAMINOPHEN INJECTION 100 ML IVPB ONE (10:01)
[2024-03-20] MEDS: ENALAPRIL MALEATE 10 MG TABLET PO ONE (10:08)
[2024-03-20] MEDS: ACETAMINOPHEN 1000 MG/100 ML BAG IVPB ONE (10:08)
[2024-03-20] MEDS: SODIUM CHLORIDE 0.9% 500 ML INFUS.BAG IV ONE (10:08)
[2024-03-20 12:24] VITALS: BP 157/100; PULSE 81; TEMP 98
== END 2024-03-20 12:25 | disposition home or self-care (01) ==
LOC: JER 05:42
PROC: 3E033GC Introduction of Other Therapeutic Substance into Peripheral Vein, Percutaneous Approach (ICD-10-PCS; principal; 2024-03-20)
PROC: 3E033GC Introduction of Other Therapeutic Substance into Peripheral Vein, Percutaneous Approach (ICD-10-PCS; 2024-03-20)
DX: K21.9 Gastro-esophageal reflux disease without esophagitis (principal); R10.13 Epigastric pain
CPT/HCPCS: 36415; 80053; 83690; 83735; 84484; 85025; 93005; 93010; 99284-25; J0131

== ENCOUNTER 2024-04-03 05:35 | Emergency (ER) | payer OTHER ==
[2024-04-03 05:43] VITALS: TEMP 98.5; BMI 28.3
[2024-04-03] MEDS ORDERED: SUCRALFATE 1 GM TABLET (FP) ONE (06:12)
[2024-04-03] MEDS ORDERED: FAMOTIDINE 20 MG/50 ML IVPB 20 MG/50 ML MG IVPB ONE (06:13)
[2024-04-03] MEDS ORDERED: MAG HYDROX/AL HYDROX/SIMETH 30 ML UNIT-DOSE CUP ONE (06:13)
[2024-04-03] MEDS: SUCRALFATE 1 GM TABLET (FP) PO ONE (06:47)
[2024-04-03] MEDS: MAG HYDROX/AL HYDROX/SIMETH 30 ML UNIT-DOSE CUP PO ONE (06:48)
[2024-04-03] MEDS: SODIUM CHLORIDE 1,000 ML IV STA (06:48)
[2024-04-03] MEDS: FAMOTIDINE 20 MG/50 ML IVPB 20 MG/50 ML MG IVPB ONE (06:48)
[2024-04-03 07:17] LABS: BASO % 0.5 % (0-2.0); EOS % 2.4 % (0-4.5); HEMATOCRIT 43.5 % (35.4-49); HEMOGLOBIN 14.2 GM/dL (11.7-16.9); LYMPH % 35.2 % (8-40); MCH 28.3 pg (25.7-33.7); MCHC 32.6 g/dl (32.0-35.9); MEAN CELL VOLUME 86.9 fl (80-96); MEAN PLT VOLUME 6.6 fl (7.5-11.1); NEUT % 54.9 % (42.8-82.8); PLATELET COUNT 378 10^3/uL (134-434); RBC 5.01 M/mm3 (4.00-5.60); RDW 14.9 % (11.9-15.9); WHITE BLOOD COUNT 6.1 K/mm3 (4.0-10.0)
[2024-04-03 07:22] LABS: INR 0.95 (0.83-1.09); PROTHROMBIN TIME (PATIENT) 10.8 SEC (9.7-13.0)
[2024-04-03 07:25] LABS: ACTIVATED PTT 30.5 SECONDS (25.2-36.5)
[2024-04-03 07:39] LABS: POTASSIUM 4.8 mmol/L (3.5-5.1)
[2024-04-03 07:41] LABS: CALCIUM 8.9 mg/dL (8.5-10.1)
[2024-04-03 07:42] LABS: ALBUMIN 3.7 g/dl (3.4-5.0); BLOOD UREA NITROGEN 16.8 mg/dL (7-18)
[2024-04-03 07:46] LABS: BILIRUBIN,TOTAL 0.6 mg/dL (0.2-1); TOT PROT 7.3 g/dl (6.4-8.2)
[2024-04-03 09:42] VITALS: BP 160/90; PULSE 73; RESP 16
== END 2024-04-03 09:44 | disposition home or self-care (01) ==
LOC: JER 05:35
PROC: 3E033GC Introduction of Other Therapeutic Substance into Peripheral Vein, Percutaneous Approach (ICD-10-PCS; principal; 2024-04-03)
PROC: 3E0337Z Introduction of Electrolytic and Water Balance Substance into Peripheral Vein, Percutaneous Approach (ICD-10-PCS; 2024-04-03)
DX: R10.13 Epigastric pain (principal); R11.0 Nausea
CPT/HCPCS: 36415; 71045-TC-FY; 80053; 83690; 84484; 85025; 85610; 85730; 93005; 93010; 96361; 96365; 99285-25

== ENCOUNTER 2024-06-14 06:24 | Emergency (ER) | payer OTHER ==
[2024-06-14 06:28] VITALS: BMI 29.4
[2024-06-14] MEDS ORDERED: LIDOCAINE 4% PATCH TP ONE (07:46)
[2024-06-14] MEDS ORDERED: KETOROLAC TROMETHAMINE 30 MG/1 ML VIAL ONE (07:46)
[2024-06-14] MEDS ORDERED: ENALAPRIL MALEATE 5 MG TABLET ONE (07:51)
[2024-06-14] MEDS: KETOROLAC TROMETHAMINE 30 MG/1 ML VIAL IM ONE (07:56)
[2024-06-14] MEDS: LIDOCAINE 4% PATCH TP ONE (07:56)
[2024-06-14] MEDS: ENALAPRIL MALEATE 10 MG TABLET PO SCH (07:56)
[2024-06-14] MEDS: ENALAPRIL MALEATE 10 MG TABLET PO ONE (08:11)
[2024-06-14 08:17] LABS: PH,URINE 7.5 (5.0-8.0); URINE APPEARANCE CLEAR; URINE BILIRUBIN NEGATIVE (NEGATIVE); URINE COLOR YELLOW; URINE GLUCOSE (UA) NEGATIVE (NEGATIVE); URINE KETONE NEGATIVE (NEGATIVE); URINE LEUK ESTERASE NEGATIVE (NEGATIVE); URINE NITRITE NEGATIVE (NEGATIVE); URINE PROTEIN NEGATIVE (NEGATIVE)
[2024-06-14 09:52] VITALS: BP 168/94; PULSE 75; RESP 20; TEMP 98.7
[2024-06-14] MEDS ORDERED: LIDOCAINE PATCH REMOVAL MC SCH (22:00)
== END 2024-06-14 09:59 | disposition home or self-care (01) ==
LOC: JER 06:24
PROC: 3E0133Z Introduction of Anti-inflammatory into Subcutaneous Tissue, Percutaneous Approach (ICD-10-PCS; principal; 2024-06-14)
DX: M54.50 Low back pain, unspecified (principal)
CPT/HCPCS: 72100-TC-FY; 81003; 87086; 96372; 99284-25

== ENCOUNTER 2024-08-07 06:25 | Observation (INO) | payer OTHER ==
[2024-08-07 06:40] VITALS: BMI 29.0
[2024-08-07] MEDS ORDERED: MAG HYDROX/AL HYDROX/SIMETH 30 ML UNIT-DOSE CUP ONE ×2 (08:15→21:27)
[2024-08-07] MEDS ORDERED: FAMOTIDINE 20 MG/50 ML IVPB 20 MG/50 ML MG IVPB ONE (08:17)
[2024-08-07] MEDS ORDERED: ACETAMINOPHEN 325 MG TABLET (FP) ONE (08:17)
[2024-08-07] MEDS: MAG HYDROX/AL HYDROX/SIMETH 30 ML UNIT-DOSE CUP PO ONE (08:30)
[2024-08-07] MEDS: FAMOTIDINE 20 MG/50 ML IVPB 20 MG/50 ML MG IVPB ONE (08:30)
[2024-08-07 09:26] LABS: EOS % 1.5 % (0-4.5); HEMOGLOBIN 14.2 GM/dL (11.7-16.9); LYMPH % 33.3 % (8-40); MCH 29.6 pg (25.7-33.7); MCHC 33.8 g/dl (32.0-35.9); MEAN CELL VOLUME 87.4 fl (80-96); MEAN PLT VOLUME 7.2 fl (7.5-11.1); MONO % 7.5 % (3.8-10.2); NEUT % 56.7 % (42.8-82.8); PLATELET COUNT 282 10^3/uL (134-434); RDW 14.5 % (11.9-15.9); WHITE BLOOD COUNT 5.5 K/mm3 (4.0-10.0)
[2024-08-07 09:48] LABS: POTASSIUM 4.6 mmol/L (3.5-5.1)
[2024-08-07 09:52] LABS: ALBUMIN 3.8 g/dl (3.4-5.0); CALCIUM 9.4 mg/dL (8.5-10.1)
[2024-08-07 09:53] LABS: BLOOD UREA NITROGEN 15.9 mg/dL (7-18); MAGNESIUM 2.6 mg/dL (1.8-2.4)
[2024-08-07 09:56] LABS: BILIRUBIN,TOTAL 0.6 mg/dL (0.2-1)
[2024-08-07 09:57] LABS: TOT PROT 7.1 g/dl (6.4-8.2)
[2024-08-07] MEDS: ACETAMINOPHEN 325 MG TABLET (FP) PO ONE (10:46)
[2024-08-07] MEDS ORDERED: MAG HYDROX/AL HYDROX/SIMETH 30 ML UNIT-DOSE CUP PO PRN (10:49)
[2024-08-07 11:17] LABS: POTASSIUM 4.1 mmol/L (3.5-5.1)
[2024-08-07 11:19] LABS: BLOOD UREA NITROGEN 14.9 mg/dL (7-18); CALCIUM 9.3 mg/dL (8.5-10.1)
[2024-08-07] MEDS: ENALAPRIL MALEATE 10 MG TABLET PO SCH (11:57)
[2024-08-07] MEDS: MAG HYDROX/AL HYDROX/SIMETH 30 ML UNIT-DOSE CUP PO SCH (14:15)
[2024-08-07] MEDS ORDERED: MELATONIN 5 MG TABLETS PO PRN (19:49)
[2024-08-07] MEDS ORDERED: ATORVASTATIN CA 40 MG TABLET (FP) ONE ×2 (21:27→21:33)
[2024-08-07] MEDS ORDERED: MELATONIN 5 MG TABLETS ONE (21:27)
[2024-08-07] MEDS: ATORVASTATIN CA 40 MG TABLET (FP) PO SCH (21:40)
[2024-08-07] MEDS: MELATONIN 5 MG TABLETS PO ONE (21:40)
[2024-08-07] MEDS ORDERED: PANTOPRAZOLE 40 MG TABLET PO SCH (22:00)
[2024-08-07] MEDS: LATANOPROST 0.005% OPHTH SOLN 2.5ML BOTTLE OU SCH (22:45)
[2024-08-08 06:24] VITALS: RESP 18
[2024-08-08 06:31] LABS: BASO % 1.4 % (0-2.0); EOS % 2.9 % (0-4.5); HEMATOCRIT 43.4 % (35.4-49); HEMOGLOBIN 14.4 GM/dL (11.7-16.9); LYMPH % 38.7 % (8-40); MCH 29.2 pg (25.7-33.7); MCHC 33.1 g/dl (32.0-35.9); MEAN CELL VOLUME 88.3 fl (80-96); MEAN PLT VOLUME 7.3 fl (7.5-11.1); MONO % 9.1 % (3.8-10.2); NEUT % 47.9 % (42.8-82.8); PLATELET COUNT 277 10^3/uL (134-434); RBC 4.91 M/mm3 (4.00-5.60); RDW 14.5 % (11.9-15.9); WHITE BLOOD COUNT 5.6 K/mm3 (4.0-10.0)
[2024-08-08 06:48] LABS: POTASSIUM 4.3 mmol/L (3.5-5.1)
[2024-08-08 06:51] LABS: CALCIUM 8.9 mg/dL (8.5-10.1); MAGNESIUM 2.7 mg/dL (1.8-2.4)
[2024-08-08 06:52] LABS: ALBUMIN 3.7 g/dl (3.4-5.0)
[2024-08-08 06:55] LABS: BILIRUBIN,TOTAL 0.6 mg/dL (0.2-1); PHOSPHOROUS 3.8 mg/dL (2.5-4.9)
[2024-08-08 06:56] LABS: TOT PROT 6.8 g/dl (6.4-8.2)
[2024-08-08] MEDS ORDERED: MAG HYDROX/AL HYDROX/SIMETH 30 ML UNIT-DOSE CUP ONE (08:11)
[2024-08-08] MEDS: TAMSULOSIN HCL 0.4 MG CAP PO SCH (08:43)
[2024-08-08] MEDS ORDERED: FAMOTIDINE 20 MG TABLET ONE (09:44)
[2024-08-08] MEDS ORDERED: ENOXAPARIN NA (PORCINE) 40 MG/0.4 ML DISP.SYRIN SQ ONE (09:44)
[2024-08-08] MEDS ORDERED: FAMOTIDINE 10 MG TABLET PO SCH ×2 (10:00)
[2024-08-08] MEDS ORDERED: FLUTICASONE PROP 0.05% 16 GM NASAL SPRAY NS SCH (10:00)
[2024-08-08] MEDS: FAMOTIDINE 20 MG TABLET PO SCH (11:00)
[2024-08-08] MEDS: PARoxetine HCL 10 MG TABLET PO SCH (11:00)
[2024-08-08] MEDS: ENOXAPARIN NA (PORCINE) 40 MG/0.4 ML DISP.SYRIN SQ SCH (12:35)
[2024-08-08 13:56] VITALS: BP 108/68; PULSE 102; TEMP 98.2
== END 2024-08-08 16:01 | disposition home or self-care (01) ==
LOC: JER 06:25 → JERBED 10:05
PROVIDERS: ADMIT Internal Medicine; ATTEND Internal Medicine
PROC: 3E023GC Introduction of Other Therapeutic Substance into Muscle, Percutaneous Approach (ICD-10-PCS; principal; 2024-08-07)
PROC: 3E033GC Introduction of Other Therapeutic Substance into Peripheral Vein, Percutaneous Approach (ICD-10-PCS; 2024-08-07)
DX: K21.9 Gastro-esophageal reflux disease without esophagitis (principal); K29.70 Gastritis, unspecified, without bleeding; R10.13 Epigastric pain; I10 Essential (primary) hypertension; N40.0 Benign prostatic hyperplasia without lower urinary tract symptoms; E78.5 Hyperlipidemia, unspecified; R79.89 Other specified abnormal findings of blood chemistry; K57.90 Diverticulosis of intestine, part unspecified, without perforation or abscess without bleeding; Z87.891 Personal history of nicotine dependence
CPT/HCPCS: 36415; 71045-TC-FY; 80048; 80053; 83690; 83735; 84100; 84484; 85025; 93005; 93010; 93306-TC; 96365; 96372; 99285-25; G0378

== ENCOUNTER 2025-06-17 07:22 | Emergency (ER) | payer OTHER ==
[2025-06-17 07:31] VITALS: TEMP 98.3; BMI 28.3
[2025-06-17] MEDS ORDERED: ENALAPRIL MALEATE 5 MG TABLET ONE (08:54)
[2025-06-17] MEDS ORDERED: valACYclovir HCL 500 MG TABLET (FP) ONE (08:54)
[2025-06-17] MEDS: valACYclovir HCL 500 MG TABLET (FP) PO ONE (09:00)
[2025-06-17 09:44] LABS: MCHC 32.4 g/dl (32.3-36.5); MEAN CELL VOLUME 91.0 fl (79.0-92.2); MEAN PLT VOLUME 9.4 fl (9.4-12.4); RDW 12.9 % (12.2-16.6)
[2025-06-17] MEDS: ENALAPRIL MALEATE 10 MG TABLET PO ONE (09:47)
[2025-06-17 09:53] LABS: INR 1.01 (0.83-1.09); PROTHROMBIN TIME (PATIENT) 11.1 SEC (9.7-13.0)
[2025-06-17 09:56] LABS: ACTIVATED PTT 30.3 SECONDS (25.2-36.5)
[2025-06-17 10:24] LABS: GLUCOSE,RANDOM 101.0 mg/dL (74-106); TOT PROT 7.2 g/dl (6.4-8.2)
[2025-06-17 10:26] VITALS: BP 142/106; PULSE 89; RESP 18
[2025-06-17 10:26] LABS: CO2 28.0 mmol/L (21-32)
[2025-06-17 10:27] LABS: ALK PHOS 97.0 U/L (40-150)
[2025-06-17 10:30] LABS: CREATININE 0.96 mg/dL (0.55-1.3); SGOT/AST 33.0 U/L (5-34); SGPT/ALT 27.0 U/L (0-55)
[2025-06-17 10:38] LABS: N-TERMINAL BNP 109.8 pg/mL (0-299.9)
== END 2025-06-17 13:40 | disposition home or self-care (01) ==
LOC: JER 07:22
DX: R21 Rash and other nonspecific skin eruption (principal); R07.81 Pleurodynia; R06.02 Shortness of breath; M79.89 Other specified soft tissue disorders; L53.9 Erythematous condition, unspecified; B02.9 Zoster without complications
CPT/HCPCS: 36415; 71046-TC-FY; 71275-TC; 80053; 83735; 83880; 84484; 85027; 85610; 85730; 86803; 93005; 93010; 99285-25; Q9967

== ENCOUNTER 2025-07-07 07:38 | Emergency (ER) | payer OTHER ==
[2025-07-07 08:02] VITALS: BP 191/91; PULSE 81; RESP 18; TEMP 98.4; BMI 26.9
[2025-07-07] MEDS ORDERED: LIDOCAINE 5% TOPICAL PATCH ONE (09:55)
[2025-07-07] MEDS ORDERED: GABAPENTIN 300 MG CAPSULE ONE (09:55)
[2025-07-07] MEDS: GABAPENTIN 300 MG CAPSULE PO ONE (10:03)
[2025-07-07] MEDS: LIDOCAINE 5% TOPICAL PATCH TP ONE (10:03)
[2025-07-07] MEDS ORDERED: LIDOCAINE PATCH REMOVAL MC SCH (22:00)
== END 2025-07-07 10:03 | disposition home or self-care (01) ==
LOC: JER 07:38
DX: B02.29 Other postherpetic nervous system involvement (principal); R07.89 Other chest pain; R21 Rash and other nonspecific skin eruption
CPT/HCPCS: 99283-25